=== PATIENT | male | born 1955 | race Caucasian/White ===

== ENCOUNTER 2017-02-19 02:35 | Emergency (ER) | payer SELFPAY ==
[~2017-02-19] VITALS: Ht 177.8 cm; Wt 72.6 kg
--- NOTE | 2017-02-19 02:35 | NUR ---
PT BIB PD, PREBOOK. TAKEN TO OF
[2017-02-19 02:38] VITALS: BP 181/132
[2017-02-19] MEDS ORDERED: hydrALAZINE 20 MG/ML VIAL IVP ONE (02:45)
[2017-02-19] MEDS ORDERED: ENALAPRILAT 2.5 MG/2 ML VIAL IVP ONE (02:45)
--- NOTE | 2017-02-19 03:01 | NUR ---
PT MOVED TO BED 11
--- NOTE | 2017-02-19 03:40 | NUR ---
Patient discharged with v/s stable. Written and verbal after care instructions given and explained. Patient alert, oriented and verbalized understanding of instructions. Police with in custody. All questions addressed prior to discharge. ID band removed. Patient advised to follow up with PMD.NO Rx given. Patient educated on indication of medication including possible reaction and side effects. Opportunity to ask questions provided and answered. ER MD DR PINTO GAVE OK FOR PT TO BE DISCHARED WITH BP 172/99, 88, 100%, 16, PT IS AAOX4 AT THIS TIME. PT DENIES ANY PAIN AT THIS TIME.
[2017-02-19 03:46] VITALS: BP 172/99
== END 2017-02-19 03:40 ==
LOC: MED 02:35
DX: Z02.89 Encounter for other administrative examinations (principal); I10 Essential (primary) hypertension
CPT/HCPCS: 96374; 96375; 99284; J0360; J3490